=== PATIENT | female | born 2000 | race Hispanic/Latino ===

== ENCOUNTER 2021-04-24 18:53 | Emergency (ER) | payer OTHER ==
[~2021-04-24] VITALS: Ht 147.3 cm; Wt 51.9 kg
--- NOTE | 2021-04-24 19:22 | REP ---
INDICATION: INJURY. COMPARISON: None. TECHNIQUE: Four views of the right wrist. FINDINGS: Four views of the right wrist demonstrate overall normal mineralization. Joint spaces are preserved. No fracture or subluxation is seen. IMPRESSION: Negative right wrist radiographs. <Electronically signed by Aniceto Mata > 04/24/21 [id number]
--- NOTE | 2021-04-24 19:23 | REP ---
INDICATION: INJURY. COMPARISON: None. TECHNIQUE: Four views of the right hand. FINDINGS: Four views of the right hand demonstrate normal bones, joints, and soft tissues. No fracture or subluxation is seen. No opaque foreign body noted. IMPRESSION: Negative right hand series. <Electronically signed by Aniceto Mata > 04/24/211918
[2021-04-24] MEDS ORDERED: IBUPROFEN 600MG TAB PO ONE (22:40)
[2021-04-24] MEDS ORDERED: ACETAMINOPHEN 325 MG TAB PO ONE (22:40)
[2021-04-24 23:02] VITALS: BP 128/70
== END 2021-04-24 23:04 | disposition home or self-care (01) ==
LOC: M ED 18:53
DX: S69.91XA Unspecified injury of right wrist, hand and finger(s), initial encounter (principal); W23.1XXA Caught, crushed, jammed, or pinched between stationary objects, initial encounter; Y92.59 Other trade areas as the place of occurrence of the external cause; Y93.89 Activity, other specified; Y99.8 Other external cause status